=== PATIENT | male | born 1940 | race Caucasian/White ===

== ENCOUNTER 2016-09-29 15:01 | Emergency (ER) | payer MEDICARE, BC ==
[~2016-09-29 15:01] MED LIST: B/P MED; BLOOD PRESSURE MED PO; CHOLESTEROL MED; COZAAR100 MG PO; LIPITOR20 MG PO; LORTAB 10-3251 EACH PO; LORTAB 5-325 M1 EACH PO; SIMVASTATIN PO; ULTRAM; ULTRAM PO
[2016-09-29] MEDS ORDERED: HYDROCHLOROTHIA25 MG PO (15:04)
[2016-09-29] MEDS ORDERED: AMLODIPINE BESYL5 MG PO (15:04)
[2016-09-29 15:50] LABS: URINE SOURCE CLEAN CATCH
[2016-09-29 15:52] LABS: URINE APPEARANCE CLEAR; URINE BLOOD NEG (NEG); URINE COLOR YELLOW; URINE GLUCOSE NEG (NORM); URINE KETONE TRACE (NEG); URINE LEUKOCYTE ESTERASE NEG (NEG); URINE NITRATE NEG (NEG); URINE PROTEIN NEG (NEG)
[2016-09-29 15:54] LABS: MICRO INDICATED? NO; URINE BILIRUBIN NEG (NEG)
== END 2016-09-29 16:49 | disposition home or self-care (01) ==
LOC: SED 15:01
PROVIDERS: Emergency Medicine
DX: N40.1 Benign prostatic hyperplasia with lower urinary tract symptoms (principal); R33.8 Other retention of urine; I10 Essential (primary) hypertension; Z98.890 Other specified postprocedural states; Z79.899 Other long term (current) drug therapy
CPT/HCPCS: 81003; 99283